=== PATIENT | male | born 1935 | race Caucasian/White ===

== ENCOUNTER 2017-11-10 17:30 | Inpatient (IN) | payer MEDICARE ==
[~2017-11-10] VITALS: Ht 170.1 cm; Wt 102.1 kg
--- NOTE | ~2017-11-10 | PR ---
[place], [place] PROGRESS NOTE NAME: AMINAH JEFFRIES [facility] #: [id number] UNIT #: [id number] ROOM: 317 DOCTOR: JO RYAN MD BIRTHDATE: [birth year] DOS: 11/12/2017 SUBJECTIVE: The patient seen and I spoke with the staff. Per staff, the patient spoke to self all night, also was picking on things when nothing was there and also he was talking with a dog as if the dog he can see it. The patient was pleasant, cooperative. He was in his bed. When I asked him about the incidents last night, he said that he was dreaming a dog, but not able to recall any other events. He is taking his medication regularly and did not have any side effect from the medication also. PLAN: 1. I will add Zyprexa 2.5 mg at night. 2. Continue other medications. 3. Continue redirection. 4. Encourage activities and groups. 5. Final medication management and discharge plan with the regular team. JO RYAN MD CM:PNTRANS [phone] JO RYAN MD 11/12/172241 interface
--- NOTE | ~2017-11-10 | WRIGHTHP ---
[place], [place] PATIENT HISTORY AND PHYSICAL EXAM [id number] UN[facility] #: [id number] ROOM: 317 DOCTOR: JO RYAN MD BIRTHDATE: [birth year] DOS: 11/11/2017 REASON FOR HOSPITALIZATION: Acute mental status changes and [facility] behavior at the [facility]. HISTORY OF PRESENT ILLNESS: The patient seen and chart reviewed. An 82-year-old white male with history of depression, who was actually brought into the ER for acute mental status changes. The patient reportedly became combative at the [facility] without any specific reason. In the ER, his labs were within normal limit. He got cleared medically and then sent to the psychiatric unit for further care and stabilization. The patient was pleasant and cooperative during the interview. He was in wheelchair. He reports doing okay now. When I asked him that why he got admitted to the psych unit, he told me that he was talking to his at the [facility]. He mentioned that he was seeing her and talking with her. He said that he is not doing that anymore. He was not able to recall the event of his agitative and aggressive behavior. He reports being depressed and down at times, claiming that he was not given his Cymbalta at the [facility]. He also talked about poor sleep at night. He denied any hopelessness, denied any other neurovegetative signs and symptoms of depression. He denied any psychotic symptoms now, denied any symptoms of timothy or hypomania. He mentioned that whenever he sleeps he dreams of his , but nothing more than that. He claims that the Cymbalta was helping him. PAST MEDICAL HISTORY: Significant for atrial fibrillation, BPH, chronic constipation, COPD, diabetes type 2, hyperlipidemia, hypertension, history of cardiac pacemaker. PAST PSYCHIATRIC HISTORY: The patient mentioned that he had "couple psych hospitalization/" Denied prior suicide attempt. No suicide in the family. SUBSTANCE ABUSE HISTORY: The patient denied any drugs or alcohol. SOCIAL HISTORY: He was born and raised in [place], [place], high school graduate. He was once. . He has one daughter. He is on SSD. He lives by himself. MENTAL STATUS EXAMINATION: The patient was pleasant and cooperative. He was alert and oriented to year and place. He described his mood as "okay." Affect somewhat constricted. Thought process goal directed with some confabulation. He denied auditory or visual hallucination. No delusion or paranoia noted. He denied any suicidal ideation, intent or plan. He also denied any homicidal ideation, intent or plan. ASSESSMENT: 1. 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 2. Delirium secondary to general medical condition ____. [place], [place] PATIENT HISTORY AND PHYSICAL EXAM NAME: AMINAH JEFFRIES UNIT #: [id number] ROOM: [facility] DOCTOR: JO RYAN MD BIRTHDATE: [birth year] PLAN: 1. I will continue his Cymbalta 90 mg a day. 2. Continue redirection and supportive care. We will continue his Aricept 10 mg a day. 3. The patient will be seen by the medical team during his stay in the psychiatric unit to make sure that he is stable medically. JO RYAN MD CM:HISPHYS:PATIENT HISTORY AND PHYSICAL EXAMINATION [id number] JO RYAN MD 11/11/17 1136 interface
--- NOTE | ~2017-11-10 | DS ---
[place], [place] DISCHARGE SUMMARY NAME: AMINAH JEFFRIES [facility] #: [id number] UNIT #: [id number] ROOM: 317 DOCTOR: ADORE GO MD BIRTHDATE: [birth year] DOS: 11/13/2017 CHIEF COMPLAINT: "I was talking to my dad , I guess I would not do that anymore." HISTORY OF PRESENT ILLNESS: This is an 82-year-old white male who is a resident of [facility]. The patient was to be sent here because of significant alteration in mental status. He was acutely agitated and psychotic. He apparently was talking to his and when confronted about this, he escalated and became very volatile and angry. Additionally, he was upset because he was not given his nighttime Cymbalta, which he takes not only for depression, but for pain. He was sent to [facility] to be medically cleared. However, his troponin level was elevated and he was briefly admitted there. Of note, [facility] did state that upon his admission there he was pleasant, cooperative and exhibited, no behavioral signs. He was admitted to the [facility] to further evaluate this altered mental status and to determine appropriateness of need to continue to stay in a psychiatric unit versus returning to the correction. PAST MEDICAL HISTORY: Remarkable for atrial fibrillation, benign prostatic hypertrophy, chronic constipation, COPD, diabetes, hyperlipidemia, hypertension, cardiac pacemaker placement and chronic pain. He also has history of several psychiatric hospitalizations. SUMMARY OF HOSPITAL COURSE: The patient was admitted to the unit where his donepezil and Namenda were maintained as was his Cymbalta 90 mg at bedtime, Zyprexa 2.5 mg at bedtime was added. The patient was pleasant, bright and cooperative throughout his stay. At times he would be found talking to unforeseen others and he realized that he was doing so he found this was comforting to him in no way, shape or form was he disruptive to the jade milieu. He was not distraught. He was not experiencing any command hallucinations. For the most part, he was alert and oriented and pleasant. He was tolerating the current medication regimen well. MENTAL STATUS AT DISCHARGE: He was alert and oriented with mild time gaps. Mood does seem to be euthymic. Affect appropriate. No timothy, hypomania or psychosis is noted. No medication side effects are noted. He is not suicidal, homicidal, or self-injurious. Short-term memory has mild gaps, otherwise he is intact. PLAN: The patient is to be discharged back to [facility]. All of his prescriptions have been printed and will be sent with him. I will follow him upon his return there. [place], [place] DISCHARGE SUMMARY NAME: AMINAH JEFFRIES UNIT #: [id number] ROOM: 317 DOCTOR: ADORE GO MD BIRTHDATE: [birth year] ADORE GO MD CM:TAE [id number] ADORE GO MD 11/14/17 1321 interface
[2017-11-10] MEDS ORDERED: ABILIFY5 MG PO (17:32)
[2017-11-10] MEDS ORDERED: AMARYL2 MG PO (17:33)
[2017-11-10] MEDS ORDERED: ARICEPT10 M1 PO (17:34)
[2017-11-10] MEDS ORDERED: ASPIR LOW81 MG PO (17:35)
[2017-11-10] MEDS ORDERED: CYMBALTA60 MG PO (17:36)
[2017-11-10] MEDS ORDERED: FLOMAX0.4 MG PO (17:36)
[2017-11-10] MEDS ORDERED: FLONASE ALLERG9.9 ML NAS (17:37)
[2017-11-10] MEDS ORDERED: LIPITOR40 MG PO (17:38)
[2017-11-10] MEDS ORDERED: JARDIANCE10 MG PO (17:38)
[2017-11-10] MEDS ORDERED: NAMENDA-21 PO (17:39)
[2017-11-10] MEDS ORDERED: MELATONIN5 M6 PO (17:39)
[2017-11-10] MEDS ORDERED: SENOKOT PO (17:41)
[2017-11-10] MEDS ORDERED: TOPROL XL50 M1 PO (17:41)
[2017-11-10] MEDS ORDERED: VOLTAREN-XR100 MG PO (17:42)
[2017-11-10] MEDS ORDERED: DOCUSATE SODIU100 M2 PO (17:43)
[2017-11-10] MEDS ORDERED: GLUCOPHAGE850 M1 PO (17:44)
[2017-11-10] MEDS ORDERED: BUDESONIDE0.25 MG/2 INH (17:44)
[2017-11-10] MEDS ORDERED: DUONEB 3 MG/3 ML3 M1 INH (17:45)
[2017-11-10] MEDS ORDERED: LACTULOSE20 GM/30 M PO (17:46)
[2017-11-10] MEDS ORDERED: NITROSTAT0.4 MG PO (17:47)
[2017-11-10] MEDS ORDERED: ROBITUSSIN-DM 110 ML PO (17:48)
[2017-11-10] MEDS ORDERED: NYSTATIN1 EAC5 MC (17:50)
[2017-11-10 20:00] VITALS: BP 124/67
[2017-11-10 21:27] VITALS: BP 124/67
[2017-11-10] MEDS ORDERED: OXYGEN NAS (21:36)
[2017-11-11] LABS: BILIRUBIN NEGATIVE (NEGATIVE); BLOOD 2+ (NEGATIVE); CLARITY SL CLOUDY (CLEAR); COLOR YELLOW (YELLOW); GLUCOSE 3+ (NEGATIVE); KETONE TRACE (NEGATIVE); LEUKO ESTERASE NEGATIVE (NEGATIVE); NITRITE NEGATIVE (NEGATIVE); SPECIFIC GRAVITY 1.025 (1.005-1.030); UROBILINOGEN 0.2 E.U./dl (0.2-1.0)
[2017-11-11 00:22] LABS: BACTERIA 3+; RBC 41-50 rbc/hpf (0-2)
[2017-11-11 06:52] LABS: BASO % 0.4 % (0.0-1.0); EOS # 0.3 10*3/uL (0.0-0.4); EOS % 4.2 % (1.0-4.0); HEMATOCRIT 44.1 % (42.0-52.0); HEMOGLOBIN 14.2 g/dl (14.0-18.0); LYMPH # 1.6 10*3/uL (1.3-4.4); LYMPH % 22.6 % (27.0-41.0); MEAN CELL VOLUME 96.3 fl (80.0-94.0); MEAN CORPUSCULAR HGB CONC 32.2 g/dl (33.0-37.0); MEAN PLATELET VOLUME 10.3 fl (9.6-12.3); MONO # 0.5 10*3/uL (0.1-1.0); MONO % 6.5 % (3.0-9.0); NEUT # 4.7 10*3/uL (2.3-7.9); NEUT % 65.9 % (47.0-73.0); PLATELET COUNT AUTOMATED 217 10*3/uL (130-400); RED BLOOD COUNT 4.58 10*6/uL (4.50-5.90); RED CELL DISTRI WIDTH 13.3 % (0-14.5); WHITE BLOOD COUNT 7.2 10*3/uL (4.8-10.8)
[2017-11-11 07:22] LABS: ALBUMIN 3.7 gm/dl (3.1-4.5); CREATININE 1.53 mg/dL (0.70-1.30); TOTAL PROTEIN 7.8 gm/dL (6.4-8.2)
[2017-11-11 07:30] LABS: THYROID STIM HORMONE (HS) 1.43 uIU/ml (0.358-4.75)
[2017-11-11 07:40] VITALS: BP 133/51
[2017-11-11 08:49] LABS: VITAMIN D, 25-HYDROXY 5.7 ng/mL (30-100)
[2017-11-11 20:00] VITALS: BP 120/60
[2017-11-12 07:54] VITALS: BP 118/62
[2017-11-12 20:00] VITALS: BP 111/60
[2017-11-13 07:47] VITALS: BP 110/64
[2017-11-13] MEDS ORDERED: Vitamin D PO (09:15)
[2017-11-13] MEDS ORDERED: DULOXETINE HCL30 MG PO (09:15)
[2017-11-13] MEDS ORDERED: ARICEPT10 M1 PO (09:15)
[2017-11-13] MEDS ORDERED: OLANZAPINE5 MG PO (09:15)
[2017-11-13] MEDS ORDERED: MEMANTINE HCL10 MG PO (09:15)
== END 2017-11-13 15:05 | disposition other institution (70) | DRG 884 ==
LOC: 3N 17:30
PROVIDERS: Psychiatry & Neurology Psychiatry
DX: F03.91 Unspecified dementia, unspecified severity, with behavioral disturbance (principal); F33.9 Major depressive disorder, recurrent, unspecified; I48.91 Unspecified atrial fibrillation; E11.9 Type 2 diabetes mellitus without complications; F23 Brief psychotic disorder; J44.9 Chronic obstructive pulmonary disease, unspecified; E78.5 Hyperlipidemia, unspecified; G89.29 Other chronic pain; I10 Essential (primary) hypertension; N40.0 Benign prostatic hyperplasia without lower urinary tract symptoms; K59.09 Other constipation; J30.2 Other seasonal allergic rhinitis; Z95.0 Presence of cardiac pacemaker; Z95.1 Presence of aortocoronary bypass graft; Z82.49 Family history of ischemic heart disease and other diseases of the circulatory system; Z82.3 Family history of stroke; Z88.2 Allergy status to sulfonamides; Z79.899 Other long term (current) drug therapy; Z88.1 Allergy status to other antibiotic agents; Z91.030 Bee allergy status; Z79.84 Long term (current) use of oral hypoglycemic drugs; Z79.82 Long term (current) use of aspirin